=== PATIENT | female | born 1950 | race African-American/Black ===

== ENCOUNTER 2017-08-03 17:31 | Emergency (ER) | payer OTHER ==
[~2017-08-03] VITALS: Ht 162.6 cm; Wt 60.0 kg
[~2017-08-03 17:31] MED LIST: ALBU8I INH; AMLO2.5T PO; ASPI81TA82 PO; LISI-360 PO; LORTA5 PO
[2017-08-03] MEDS ORDERED: ASPI81CH CHEW (17:47)
[2017-08-03] MEDS ORDERED: LISI-515 PO (17:47)
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
--- NOTE | 2017-08-03 18:31 | RADRPT ---
EXAM DATE/TIME: 08/03/2017 18:13 [facility] COMPARISON: No previous studies available for comparison. INDICATIONS : Pain due to fall. MEDICAL HISTORY : None. SURGICAL HISTORY : None. ENCOUNTER: Initial ACUITY: 1 day PAIN SCORE: 5/10 LOCATION: Right upper extremity shoulder. FINDINGS: 4 views of the right shoulder. There is a fracture of the distal clavicle 6 mm from the acromioclavic ular joint. 4-5 mm displacement. Acromioclavicular joint alignment within normal limits. Glenohumeral joint within normal limits. CONCLUSION: Acute distal clavicle fracture. Umesh Edwards MD on August 03, 2017 at 18:28 Board Certified Radiologist. This report was verified electronically.
--- NOTE | 2017-08-03 18:34 | RADRPT ---
EXAM DATE/TIME: 08/03/2017 18:17 [facility] COMPARISON: No previous studies available for comparison. INDICATIONS : Trauma; fall. RADIATION DOSE: 56.35 CTDIvol (mGy) MEDICAL HISTORY : Cerebrovascular disease. Seizures. Aneurysm, intracranial.Hypertension, diabetes SURGICAL HISTORY : Cholecystectomy. Craniotomy.Tubal ligation.Aneurysm clipping ENCOUNTER: Initial ACUITY: 1 day PAIN SCALE: 6/10 LOCATION: cranial TECHNIQUE: Multiple contiguous axial images were obtained of the head. Using automated exposure control and adj ustment of the mA and/or kV according to patient size, radiation dose was kept as low as reasonably a chievable to obtain optimal diagnostic quality images. DICOM format image data is available electro nically for review and comparison. FINDINGS: CEREBRUM: Left-sided aneurysm clip noted. Periventricular white matter hypodensity is seen bilaterally indicati ng chronic small vessel ischemic change. Evidence of prior left temporal craniotomy and encephalomala david of the anterior left temporal lobe of the posterior left frontal lobe. No evidence of acute hemor rhage or mass effect. No midline shift. POSTERIOR FOSSA: The cerebellum and brainstem are intact. The 4th ventricle is midline. The cerebellopontine angle i s unremarkable. EXTRACRANIAL: The visualized portion of the orbits is intact. CONCLUSION: Post surgical changes and chronic ischemic changes. No acute intracranial findings. Umesh Edwards MD on August 03, 2017 at 18:30 Board Certified Radiologist. This report was verified electronically.
[2017-08-03] MEDS ORDERED: NORC5TAB PO (18:44)
--- NOTE | 2017-08-03 19:04 | RADRPT ---
EXAM DATE/TIME: 08/03/2017 18:17 [facility] COMPARISON: No previous studies available for comparison. INDICATIONS : Trauma; fall. RADIATION DOSE: 31.39 CTDIvol (mGy) MEDICAL HISTORY : Cerebrovascular disease. Seizures. Aneurysm, intracranial.Hypertension, diabetes SURGICAL HISTORY : Cholecystectomy. Craniotomy.Tubal ligation.Aneurysm clipping ENCOUNTER: Initial ACUITY: 1 day PAIN SCALE: 6/10 LOCATION: neck TECHNIQUE: Volumetric scanning of the cervical spine was performed. Multiplanar reconstructions in the sagittal, coronal and oblique axial planes were performed. Using automated exposure control and adjustment o f the mA and/or kV according to patient size, radiation dose was kept as low as reasonably achievable to obtain optimal diagnostic quality images. DICOM format image data is available electronically f or review and comparison. FINDINGS: Cranial cervical and cervical vertebral body alignment are intact. Vertebral bodies and posterior elements are intact. There is no evidence of acute fracture. There is no evidence of facet subluxation. Mild degenerative disc disease is seen at C5-6. There is mild marginal spondylosis. Disc spaces are o therwise well-maintained. CONCLUSION: No evidence of acute bony or soft tissue trauma. Mild spondylosis at C5-6. Reno Nye MD on August 03, 2017 at 19:00 Board Certified Radiologist. This report was verified electronically.
== END 2017-08-03 22:23 | disposition home or self-care (01) ==
LOC: NEPE 17:31
DX: S42.034A Nondisplaced fracture of lateral end of right clavicle, initial encounter for closed fracture (principal); S09.90XA Unspecified injury of head, initial encounter; W19.XXXA Unspecified fall, initial encounter; I25.10 Atherosclerotic heart disease of native coronary artery without angina pectoris; I10 Essential (primary) hypertension
CPT/HCPCS: 70450; 72125; 73030

== ENCOUNTER 2018-11-12 12:11 | Observation (INO) ==
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
--- NOTE | 2018-11-12 12:53 | XR ---
EXAM DATE: 11/12/2018 12:48 PM EST AGE/SEX: 68 years / Female INDICATIONS: Short of breath. CLINICAL DATA: This is the patient's initial encounter. Patient reports that signs and symptoms have been present for 1 day and indicates a pain score of 0/10. MEDICAL/SURGICAL HISTORY: . Cerebrovascular disease. Seizures. Aneurysm, intracranial.Hyperten jenny, diabetes . Cholecystectomy. Craniotomy.Tubal ligation.Aneurysm clipping ENCOUNTER: Initial COMPARISON: [facility] [place], CHEST SINGLE AP, 07/15/2015. . FINDINGS: There is persistent elevation of the right hemidiaphragm. The heart is stable. The pulmonary vascular pattern is normal. The lungs are clear. CONCLUSION: 1. No acute cardiopulmonary disease. 2. Persistent elevation of the right hemidiaphragm. Electronically signed by: Tyler Hdz MD Board Certified Radiologist 11/12/2018 12:52 PM EST
[2018-11-12 13:01] LABS: Baso % (Auto) 0.4 % (0.0-2.0); Eos % (Auto) 0.8 % (0.0-4.0); Hematocrit 35.8 % (35.0-46.0); Hemoglobin 11.9 gm/dL (11.6-15.3); Lymph # (Auto) 1.3 th/mm3 (1.0-4.8); Mean Corpuscular HGB Conc 33.3 % (32.0-36.0); Mean Platelet Volume 7.9 fL (7.0-11.0); Mono # (Auto) 0.4 th/mm3 (0.0-0.9); Mono % (Auto) 6.2 % (0.0-8.0); Neut % (Auto) 69.6 % (16.0-70.0); Platelet Count 174 th/mm3 (150-450); Red Blood Count 4.42 mil/mm3 (4.00-5.30); Red Cell Distribution Width 14.3 % (11.6-17.2); White Blood Count 5.8 th/mm3 (4.0-11.0)
[2018-11-12 13:06] LABS: Activated Partial Thrombo Time 25.3 sec (23.4-31.7); INR 1.1 Ratio; Prothrombin Time 11.1 sec (9.8-11.6)
[2018-11-12 13:13] LABS: Albumin 3.6 g/dL (3.4-5.0); Anion Gap 9 meq/L (5-15); Aspartate Aminotransferase 22 U/L (15-37); Blood Urea Nitrogen 24 mg/dL (7-18); Calcium 8.5 mg/dL (8.5-10.1); Carbon Dioxide 26.1 meq/L (21.0-32.0); Chloride 108 meq/L (98-107); Glomerular Filtration Rate 32 mL/min (>89); Glucose,Random 173 mg/dL (74-106); Magnesium 1.9 mg/dL (1.5-2.5); Potassium 4.3 meq/L (3.5-5.1); Sodium 143 meq/L (136-145)
--- NOTE | 2018-11-12 13:14 | CT ---
EXAM DATE: 11/12/2018 1:10 PM EST AGE/SEX: 68 years / Female INDICATIONS: Headache. CLINICAL DATA: This is the patient's initial encounter. Patient reports that signs and symptoms have been present for > 1 year and indicates a pain score of 10/10. MEDICAL/SURGICAL HISTORY: . Cerebrovascular disease. Seizures. Intracranial aneurysm. Hypertension. Diabetes. . Cholecystectomy. Craniotomy. Tubal ligation. Aneurysm clipping RADIATION DOSE: 36.58 CTDI (mGy) COMPARISON: [facility], CT BRAIN W/O CONTRAST, 01/10/2018. C, CT BRAIN W/O CONTRAST, 08/03/2017. . TECHNIQUE: CT of the head without contrast. Using automated exposure control and adjustment of the mA and/or kV according to patient size, radiation dose was kept as low as reasonably achievable to ob tain optimal diagnostic quality images. DICOM format image data is available electronically for revi ew and comparison. FINDINGS: There is no significant change in the appearance of the brain compared to the previous examination. T he patient is status post aneurysm clipping on the left. Encephalomalacia is noted involving the left anterior temporal lobe. Severe periventricular and subcortical white matter small vessel ischemic ch anges are noted bilaterally. There is no acute infarct, acute hemorrhage, midline shift or extra-axia l fluid collections. CONCLUSION: 1. No significant change in the appearance of the brain compared to the previous examination. 2. The patient is status post aneurysm clipping on the left. Encephalomalacia is noted involving the left anterior temporal lobe. 3. Severe periventricular and subcortical white matter small vessel ischemic changes are noted bilat erally. 4. No acute infarct, acute hemorrhage, midline shift or extra-axial fluid collections. . Electronically signed by: Tyler Hdz MD Board Certified Radiologist 11/12/2018 1:13 PM EST
[2018-11-12 13:24] LABS: Alanine Aminotransferase 19 U/L (10-53); Alkaline Phosphatase 73 U/L (45-117); Total Protein 8.3 g/dL (6.4-8.2)
[2018-11-12 13:58] LABS: Bilirubin,Urine Negative (Negative); Clarity,Urine Hazy (Clear); Color,Urine Yellow (Yellw/Straw); Glucose,Urine (UA) Negative (Negative); Hyaline Casts,Urine 66 /lpf (0-3); Leukocyte Esterase,Urine Moderate (Negative); Mucus,Urine Few /lpf (Occasional); Nitrite,Urine Negative (Negative); Specific Gravity,Urine 1.014 (1.002-1.035); Squamous Epithelial Cell,Urine 1 /hpf (0-5)
--- NOTE | 2018-11-12 14:48 | P.HPFP ---
History of Present Illness Primary Care Physician: UNKNOWN <Albaro Esposito - 11/12/18 21:43> UNKNOWN <Angelo Spence - 11/12/18 14:48> History of Present Illness: 68-year-old female presenting to the emergency department with a possible syncopal event versus seizure. The patient, she fell this morning but is unable to describe if this was a syncopal event or seizure type activity. Apparently, she lives with her daughter but recently left her daughter's house unexpectedly and was unable to be located. Her daughter went looking for her and found her on the ground after an unknown period of time. Per the daughter, patient seemed to be confused and unable to explain how she was found why she ended up in a hotel. Patient is complaining of dizziness, however she states that this is a chronic issue and has not been progressing or getting worse. Patient also endorses history of a seizure disorder but states that she has not had a seizure in "months". She is supposed to be on topiramate, however has not been taking this medication for several months. At this time, patient complains of some dizziness but denies other symptoms such as chest pain, palpitations, shortness of breath, fevers or chills, or vision changes. <Albaro Esposito - 11/12/18 21:53> This patient is a 68-year-old female who presents the ED to an unwitnessed fall. Per patient she fell at approximately 1130 and reports having arm pain as well as nausea and one episode of nonbilious nonbloody vomiting prior to. This patient was previously living in [facility] months ago and went to live with her daughter, approximately 2 days ago according to the daughter the patient ran away and was found in a motel. This afternoon/this morning she was found by her daughter on the ground after being on the floor for an unknown period of time. Daughter says that the patient appeared confused after finding her in the motel. Patient reports is never happened before but does admit that she experiences daily dizziness upon awakening. This dizziness has been around for almost a year and last all day. The dizziness is exacerbated by activity and relieved by rest. There are no other exacerbating or alleviating factors. Although this dizziness has been pretty typical for her over the last year this morning it was worsened particularly after eating breakfast. She reports she ate breakfast that consisted of sausage and bread. She she does report a chronic shortness of breath at baseline but but denies any exacerbation today. She also denies any chest pain , any visual symptoms, any arm or jaw pain. She will denies any further GI symptoms. She denies any pain with urination but does report that she urinates more frequently due to drinking a lot of water. PMHx: Brain aneurysm diagnosed in 2010 no treatment, Diabetes, HTN, depression, she also reports history of seizures and stroke that cannot be expanded upon Surgery: Cholecystectomy 30 years ago, Medications: Amlodipine 5mg, 81mg aspirin FMHx: HTN and Depression Allergies: NKA Code: Social Hx: Living with daughter for last 5 months but left and has been living in a hotel for the last 2 days. Prior to living with daughter she lived in [facility]. . Patient has 3 children. Patient retired from being a cheesh-na at a bank. Previously smoked a pack a month and quit 13 years ago. No alcohol. Code: DNR Seen by unknown neurologist. PCP: Dr. Otto Ceron <Angelo Spence - 11/12/18 16:41> - Diagnosis (1) Acute encephalopathy (2) UTI (urinary tract infection) (3) Diabetes (4) HTN (hypertension) (5) Depression (6) Nutrition, metabolism, and development symptoms <Albaro Esposito - 11/12/18 21:43> (1) Acute encephalopathy (2) UTI (urinary tract infection) (3) Diabetes (4) HTN (hypertension) (5) Depression (6) Nutrition, metabolism, and development symptoms <Angelo Spence - 11/12/18 23:35> Review of Systems Constitutional: Endorses dizziness, denies chills, Denies fever(s), Denies headache(s) Eyes: Denies change in vision, Denies double vision, Denies blurry vision Cardiovascular: Denies chest pain, Denies fast heart rate, Denies rapid, pounding, or irregular heartbeat Respiratory: Endorses chronic shortness of breath without exacerbation Gastrointestinal: Endorses one episode of nonbilious nonbloody vomiting this morning. Denies abdominal pain, Denies constipation, Denies loose stools, Genitourinary: Endorses urinary frequency, denies difficulty urinating, Denies painful urination, Denies blood in urine <Angelo Spence 11/12/18 16:41> PMFSH - History History Provided By: Patient, Medical Record, Health Sciences Manager / EMT <Angelo Spence 11/12/18 14:48> - Medical History Medical History: Medical History (Last Reviewed 11/12/18 @ 12:33 by DANIEL Alexis) Brain aneurysm CAD (coronary artery disease) Diabetes Headache Hypertension Seizure <Albaro Esposito 11/12/18 21:53> Medical History (Last Reviewed 11/12/18 @ 12:33 by DANIEL Alexis) Brain aneurysm CAD (coronary artery disease) Diabetes Headache Hypertension Seizure <Angelo Spence 11/12/18 14:48> - Surgical History Surgical History: Surgical History (Last Reviewed 11/12/18 @ 12:33 by DANIEL Alexis) Hx of cholecystectomy <Albaro Esposito 11/12/18 21:53> Surgical History (Last Reviewed 11/12/18 @ 12:33 by DANIEL Alexis) Hx of cholecystectomy <Angelo Spence 11/12/18 14:48> - Tobacco History Smoking Status: Former smoker <Angelo Spence 11/12/18 14:48> - Alcohol History How Often Do You Have a Drink Containing Alcohol: Never <Angelo Spence 14:48> - Substance Use History Substance History: No History of Abuse <Angelo Spence 11/12/18 14:48> - Travel History Recent Travel in the [facility] Within the Last 8 Weeks: No <Angelo Spence 11/12 14:48> Recent Travel Out of the Country Within the Last 8 Weeks: No <Angelo Spence 11/12/18 14:48> - Immunization History Tetanus Immunization: <5 Years <Angelo Spence 11/12/18 14:48> Medications and Allergies Allergies Allergy/AdvReac Type Severity Reaction Status Date / Time No Known Allergies Allergy Verified 11/12/18 12:34 <Angelo Spence 11/12/18 14:48> Home Medications Medication Instructions Recorded Confirmed Type Nitrostat 0.4 mg SUBLINGUAL PRN PRN 11/12/18 11/12/18 History amlodipine 5 mg PO DAILY 11/12/18 11/12/18 History amlodipine 10 mg PO DAILY 11/12/18 11/12/18 History aspirin 81 mg PO DAILY 11/12/18 11/12/18 History aspirin [Aspir-81] 81 mg PO DAILY 11/12/18 11/12/18 History hydrocodone-acetaminophen [Erskine] 1 tab PO PRN PRN 11/12/18 11/12/18 History lisinopril 20 mg PO DAILY 11/12/18 11/12/18 History metoprolol tartrate 25 mg PO DAILY 11/12/18 11/12/18 History omeprazole 20 mg PO TIDAC 11/12/18 11/12/18 History sertraline [Zoloft] 25 mg PO HS 11/12/18 11/12/18 History topiramate 25 mg PO BID 11/12/18 11/12/18 History <Angelo Spence O - 11/12/18 14:48> Active Medications: Active Medications Acetaminophen (Tylenol) 650 mg PO Q4H PRN PRN Reason: Temp > 100.4 Al Hydroxide/Mg Hydroxide (Milk Of Magnesia Liq) 30 ml PO Q12H PRN PRN Reason: Mild Constipation Amlodipine Besylate (Norvasc) 5 mg PO DAILY ANA LUISA Aspirin (Aspirin Chew) 81 mg PO DAILY ANA LUISA Bisacodyl (Dulcolax Supp) 10 mg RECTAL DAILY PRN PRN Reason: SEVERE CONSITIPATION Dextrose (D50w Vial) 50 ml IV.PUSH UNSCH PRN PRN Reason: PER HYPOGLYCEMIA PROTOCOL Glucagon (Glucagon Inj) 1 mg OTHER PRN PRN PRN Reason: for Hypoglycemia Protocol Sodium Chloride (Ns Inj) 1,000 mls @ 100 mls/hr IV.CONT .Q10H ANA LUISA Last Admin: 11/12/18 17:27 Dose: 100 mls/hr Insulin Aspart (Novolog Insulin Correctional Sugar Inj) 0 unit SQ ACHS AND 3AM ANA LUISA; Protocol Last Admin: 11/12/18 21:24 Dose: Not Given Lactulose (Lactulose Liq) 30 ml PO DAILY PRN PRN Reason: SEVERE CONSITIPATION Nitrofurantoin Macrocrystals ([facility]robid) [facility] Ondansetron HCl (Zofran Inj) 4 mg IV.PUSH Q6H PRN PRN Reason: NAUSEA OR VOMITING Sennosides (Senokot) 17.2 mg PO Q12H PRN PRN Reason: Moderate Constipation Sodium Chloride (Ns Flush) 2 ml IV.FLUSH BID ON LICENSE OF [facility] Last Admin: 11/12/18 21:25 Dose: 2 ml Sodium Chloride (Ns Flush) 2 ml IV.FLUSH PRN PRN PRN Reason: FLUSH AFTER USING IV ACCESS <Albaro Esposito - 11/12/18 21:53> Exam Vital signs: Vital Signs 11/12/18 12:20 11/12/18 12:30 11/12/18 12:32 Temperature 98.1 F Pulse Rate 108 H 97 H 98 H Respiratory Rate 16 18 Blood Pressure 106/68 107/66 Pulse Oximetry 91 L 94 L 95 11/12/18 14:34 11/12/18 16:00 11/12/18 17:28 Temperature 98.6 F Pulse Rate 83 93 H 101 H Respiratory Rate 16 16 Blood Pressure 108/67 116/75 Pulse Oximetry 99 94 L 11/12/18 19:51 Temperature 98.2 F Pulse Rate 82 Respiratory Rate 16 Blood Pressure 140/86 Pulse Oximetry 100 Intake & Output 11/12/18 11/12/18 11/13/18 06:59 18:59 06:59 Weight 61.689 kg Other: # Voids 1 Weight On Admission 61.689 kg <Alabro Esposito - 11/12/18 21:43> Vital Signs 11/12/18 12:20 11/12/18 12:30 11/12/18 12:32 Temperature 98.1 F Pulse Rate 108 H 97 H 98 H Respiratory Rate 16 18 Blood Pressure 106/68 107/66 Pulse Oximetry 91 L 94 L 95 11/12/18 14:34 Temperature Pulse Rate 83 Respiratory Rate 16 Blood Pressure 108/67 Pulse Oximetry 99 Intake & Output 11/11/18 11/12/18 11/12/18 18:59 06:59 18:59 Weight 61.235 kg <Angelo Spence - 11/12/18 14:48> Narrative: General: Elderly female lying in bed, no obvious distress Skin: Warm and dry with no obvious lesions, breakdown, or rash. HEENT: Mucous membranes are moist, no obvious signs of injury CV: Regular rate and rhythm without murmur Respiratory: Clear to auscultation bilaterally without wheezes or rhonchi Neuro: Patient does have a resting tremor, neurologically intact into the upper and lower extremities with sensation and motor movement. Cranial nerves II through XII are intact. Negative pronator drift. <Albaro Esposito - 11/12/18 21:53> GENERAL: Thin appearing elderly female. No acute distress. SKIN: Warm and dry. No rash. EYES: No scleral icterus. No injection or drainage. PERRLA. EOMI. HENT: Normocephalic. Atraumatic. MMM. OP Benign. No signs of injury. NECK: Supple, trachea midline. No JVD or lymphadenopathy. CARDIOVASCULAR: Regular rate and rhythm without obvious murmurs, gallops, or rubs. RESPIRATORY: Breath sounds equal bilaterally. No accessory muscle use. CTAB. GASTROINTESTINAL: Abdomen soft, non-tender, nondistended. BS WNL. MUSCULOSKELETAL: No cyanosis or edema. Strength grossly WNL. BACK: Nontender without obvious deformity. No CVA tenderness. NEURO/PSYCH: Afocal. Awake, alert, and oriented x3 but easily distracted. <Angelo Spence - 11/12/18 16:41> Results - Labs Result diagrams: 11/12/18 12:30 11/12/18 12:30 <Angelo Spence - 11/12/18 14:48> Abnormal lab results 11/12/18 11/12/18 11/12/18 Range/Units 12:30 12:44 13:30 Chloride 108 H (98-107) meq/L BUN 24 H (7-18) mg/dL Creatinine 1.89 H (0.50-1.00) mg/dL Estimated GFR 32 L (>89) mL/min POC Glucose 187 H (68-110) mg/dl Random Glucose 173 H (74-106) mg/dL Total Bilirubin 1.2 H (0.2-1.0) mg/dL Troponin I Less than 0.02 L (0.02-0.05) ng/mL Total Protein 8.3 H (6.4-8.2) g/dL Folate (3.1-17.5) ng/mL Urine Clarity Hazy H (Clear) Ur Leukocyte Esterase Moderate H (Negative) Urine WBC (0-5) /hpf Urine Mucus Few H (Occasional) /lpf 11/12/18 11/12/18 11/12/18 Range/Units 17:26 18:12 21:23 Chloride (98-107) meq/L BUN (7-18) mg/dL Creatinine (0.50-1.00) mg/dL Estimated GFR (>89) mL/min POC Glucose 118 H (68-110) mg/dl Random Glucose (74-106) mg/dL Total Bilirubin (0.2-1.0) mg/dL Troponin I Less than 0.02 L (0.02-0.05) ng/mL Total Protein (6.4-8.2) g/dL Folate 18.1 H (3.1-17.5) ng/mL Urine Clarity (Clear) Ur Leukocyte Esterase Moderate H (Negative) Urine WBC 14 H (0-5) /hpf Urine Mucus Few H (Occasional) /lpf Short CBC 11/12/18 Range/Units 12:30 WBC 5.8 (4.0-11.0) th/mm3 Hgb 11.9 (11.6-15.3) gm/dL Hct 35.8 (35.0-46.0) % Plt Count 174 (150-450) th/mm3 BMP 11/12/18 12:30 Sodium 143 Potassium 4.3 Chloride 108 H Carbon Dioxide 26.1 BUN 24 H Creatinine 1.89 H Calcium 8.5 Cardiac Enzymes 11/12/18 11/12/18 Range/Units 12:30 17:26 Total Creatine Kinase 151 (26-192) U/L Troponin I Less than 0.02 L Less than 0.02 L (0.02-0.05) ng/mL Liver Function 11/12/18 Range/Units 12:30 Total Bilirubin 1.2 H (0.2-1.0) mg/dL AST 22 (15-37) U/L ALT 19 (10-53) U/L Alkaline Phosphatase 73 (45-117) U/L Albumin 3.6 (3.4-5.0) g/dL Urine 11/12/18 11/12/18 Range/Units 13:30 18:12 Urine Color Yellow Yellow (Yellw/Straw) Urine Clarity Hazy H Clear (Clear) Urine pH 5.0 5.0 (5.0-8.5) Ur Specific Neville 1.014 1.013 (1.002-1.035) Urine Protein Negative Negative (Neg-Trace) mg/dL Urine Glucose (UA) Negative Negative (Negative) mg/dL <Albaro Esposito - 11/12/18 21:43> Abnormal lab results 11/12/18 11/12/18 11/12/18 Range/Units 12:30 12:44 13:30 Chloride 108 H (98-107) meq/L BUN 24 H (7-18) mg/dL Creatinine 1.89 H (0.50-1.00) mg/dL Estimated GFR 32 L (>89) mL/min POC Glucose 187 H (68-110) mg/dl Random Glucose 173 H (74-106) mg/dL Total Bilirubin 1.2 H (0.2-1.0) mg/dL Troponin I Less than 0.02 L (0.02-0.05) ng/mL Total Protein 8.3 H (6.4-8.2) g/dL Urine Clarity Hazy H (Clear) Ur Leukocyte Esterase Moderate H (Negative) Urine Mucus Few H (Occasional) /lpf Short CBC 11/12/18 Range/Units 12:30 WBC 5.8 (4.0-11.0) th/mm3 Hgb 11.9 (11.6-15.3) gm/dL Hct 35.8 (35.0-46.0) % Plt Count 174 (150-450) th/mm3 BMP 11/12/18 12:30 Sodium 143 Potassium 4.3 Chloride 108 H Carbon Dioxide 26.1 BUN 24 H Creatinine 1.89 H Calcium 8.5 Cardiac Enzymes 11/12/18 Range/Units 12:30 Troponin I Less than 0.02 L (0.02-0.05) ng/mL Liver Function 11/12/18 Range/Units 12:30 Total Bilirubin 1.2 H (0.2-1.0) mg/dL AST 22 (15-37) U/L ALT 19 (10-53) U/L Alkaline Phosphatase 73 (45-117) U/L Albumin 3.6 (3.4-5.0) g/dL Urine 11/12/18 Range/Units 13:30 Urine Color Yellow (Yellw/Straw) Urine Clarity Hazy H (Clear) Urine pH 5.0 (5.0-8.5) Ur Specific Neville 1.014 (1.002-1.035) Urine Protein Negative (Neg-Trace) mg/dL Urine Glucose (UA) Negative (Negative) mg/dL <Angelo Spence - 11/12/18 14:48> - Imaging Impressions Head CTA 11/12/18 00:00 CONCLUSION: 1. Prior aneurysm clipping. 2. Variant anatomy. 3. No acute abnormality. . Neck CTA 11/12/18 00:00 CONCLUSION: 1. No aneurysms. 2. Unremarkable study. Chest X-Ray 11/12/18 12:23 CONCLUSION: 1. No acute cardiopulmonary disease. 2. Persistent elevation of the right hemidiaphragm. Head CT 11/12/18 12:23 CONCLUSION: 1. No significant change in the appearance of the brain compared to the previous examination. 2. The patient is status post aneurysm clipping on the left. Encephalomalacia is noted involving the left anterior temporal lobe. 3. Severe periventricular and subcortical white matter small vessel ischemic changes are noted bilaterally. 4. No acute infarct, acute hemorrhage, midline shift or extra-axial fluid collections. . <Albaro Esposito - 11/12/18 21:43> Impressions Chest X-Ray 11/12/18 12:23 CONCLUSION: 1. No acute cardiopulmonary disease. 2. Persistent elevation of the right hemidiaphragm. Head CT 11/12/18 12:23 CONCLUSION: 1. No significant change in the appearance of the brain compared to the previous examination. 2. The patient is status post aneurysm clipping on the left. Encephalomalacia is noted involving the left anterior temporal lobe. 3. Severe periventricular and subcortical white matter small vessel ischemic changes are noted bilaterally. 4. No acute infarct, acute hemorrhage, midline shift or extra-axial fluid collections. . <Angelo Spence - 11/12/18 14:48> Caprini VTE Risk Assessment Caprini VTE Risk Assessment: Moderate/High Risk (score >= 2) <Angelo Spence - 11/12/18 23:35> Caprini Risk Assessment Model: Point Value = 1 Point Value = 2 Point Value = 3 Point Value = 5 Age 41-60 Minor surgery BMI > 25 kg/m2 Swollen legs Varicose veins or History of unexplained or recurrent spontaneous Oral contraceptives or hormone replacement Sepsis (< 1 month) Serious lung disease, including pneumonia (< 1 month) Abnormal pulmonary function Acute myocardial infarction Congestive heart failure (< 1 month) History of inflammatory bowel disease Medical patient at bed rest Age 61-74 Arthroscopic surgery Major open surgery (> 45 min) Laparoscopic surgery (> 45 min) Malignancy Confined to bed (> 72 hours) Immobilizing plaster cast Central venous access Age >= 75 History of VTE Family history of VTE Factor V Leiden Prothrombin [id number] Lupus anticoagulant Anticardiolipin antibodies Elevated serum homocysteine Heparin-induced thrombocytopenia Other congenital or acquired thrombophilia Stroke (< 1 month) Elective arthroplasty Hip, pelvis, or leg fracture Acute spinal cord injury (< 1 month) <Albaro Esposito - 11/12/18 21:43> Point Value = 1 Point Value = 2 Point Value = 3 Point Value = 5 Age 41-60 Minor surgery BMI > 25 kg/m2 Swollen legs Varicose veins or History of unexplained or recurrent spontaneous Oral contraceptives or hormone replacement Sepsis (< 1 month) Serious lung disease, including pneumonia (< 1 month) Abnormal pulmonary function Acute myocardial infarction Congestive heart failure (< 1 month) History of inflammatory bowel disease Medical patient at bed rest Age 61-74 Arthroscopic surgery Major open surgery (> 45 min) Laparoscopic surgery (> 45 min) Malignancy Confined to bed (> 72 hours) Immobilizing plaster cast Central venous access Age >= 75 History of VTE Family history of VTE Factor V Leiden Prothrombin [id number] Lupus anticoagulant Anticardiolipin antibodies Elevated serum homocysteine Heparin-induced thrombocytopenia Other congenital or acquired thrombophilia Stroke (< 1 month) Elective arthroplasty Hip, pelvis, or leg fracture Acute spinal cord injury (< 1 month) <Angelo Spence - 11/12/18 14:48> Prophylaxis Regimen: Total Risk Factor Score Risk Level Prophylaxis Regimen 0-1 Low Early ambulation 2 Moderate Order ONE of the following: *Sequential Compression Device (SCD) *Heparin 5000 units SQ BID 3-4 Higher Order ONE of the following medications: *Heparin 5000 units SQ TID *Enoxaparin/Lovenox 40 mg SQ daily (WT < 150 kg, CrCl > 30 mL/min) *Enoxaparin/Lovenox 30 mg SQ daily (WT < 150 kg, CrCl > 10-29 mL/min) *Enoxaparin/Lovenox 30 mg SQ BID (WT < 150 kg, CrCl > 30 mL/min) AND/OR *Sequential Compression Device (SCD) 5 or more Highest Order ONE of the following medications: *Heparin 5000 units SQ TID (Preferred with Epidurals) *Enoxaparin/Lovenox 40 mg SQ daily (WT < 150 kg, CrCl > 30 mL/min) *Enoxaparin/Lovenox 30 mg SQ daily (WT < 150 kg, CrCl > 10-29 mL/min) *Enoxaparin/Lovenox 30 mg SQ BID (WT < 150 kg, CrCl > 30 mL/min) AND *Sequential Compression Device (SCD) <Albaro Esposito - 11/12/18 21:43> Total Risk Factor Score Risk Level Prophylaxis Regimen 0-1 Low Early ambulation 2 Moderate Order ONE of the following: *Sequential Compression Device (SCD) *Heparin 5000 units SQ BID 3-4 Higher Order ONE of the following medications: *Heparin 5000 units SQ TID *Enoxaparin/Lovenox 40 mg SQ daily (WT < 150 kg, CrCl > 30 mL/min) *Enoxaparin/Lovenox 30 mg SQ daily (WT < 150 kg, CrCl > 10-29 mL/min) *Enoxaparin/Lovenox 30 mg SQ BID (WT < 150 kg, CrCl > 30 mL/min) AND/OR *Sequential Compression Device (SCD) 5 or more Highest Order ONE of the following medications: *Heparin 5000 units SQ TID (Preferred with Epidurals) *Enoxaparin/Lovenox 40 mg SQ daily (WT < 150 kg, CrCl > 30 mL/min) *Enoxaparin/Lovenox 30 mg SQ daily (WT < 150 kg, CrCl > 10-29 mL/min) *Enoxaparin/Lovenox 30 mg SQ BID (WT < 150 kg, CrCl > 30 mL/min) AND *Sequential Compression Device (SCD) <Angelo Spence - 11/12/18 14:48> Assessment and Plan - Assessment (1) Acute encephalopathy Code(s): G93.40 - Encephalopathy, unspecified Status: Acute (2) UTI (urinary tract infection) Code(s): N39.0 - Urinary tract infection, site not specified Status: Acute (3) Diabetes Code(s): E11.9 - Type 2 diabetes mellitus without complications Status: Acute (4) HTN (hypertension) Code(s): I10 - Essential (primary) hypertension Status: Acute (5) Depression Code(s): F32.9 - Major depressive disorder, single episode, unspecified Status : Acute (6) Nutrition, metabolism, and development symptoms Code(s): R63.8 - Other symptoms and signs concerning food and fluid intake Status: Acute <Albaro Esposito - 11/12/18 21:43> (1) Acute encephalopathy Code(s): G93.40 - Encephalopathy, unspecified Status: Acute Plan: This patient is admitted after an unwitnessed fall, found by daughter after unknown amount of time. Patient left home 2 days ago found in hotel. History of brain anuerysm. UA shows leukocyte esterase. - Follow serial troponin - Follow serial EKGs - F/u head MRA - F/u brain MRI - Monitor on telemetry - Orthostatic BPs - Follow-up with urinary culture - Follow-up B12 - Follow-up with methylmalonic acid level - Follow-up drug screen - Follow-up with folate level - Follow-up with INR (2) UTI (urinary tract infection) Code(s): N39.0 - Urinary tract infection, site not specified Status: Acute Plan: Patient with moderate leukocyte esterase on UA on admission after unwitnessed fall. Macrobid 100 BID for 5 day course. (3) Diabetes Code(s): E11.9 - Type 2 diabetes mellitus without complications Status: Acute Plan: Patient has history of diabetes but not currently medicated. Random glucose on admission was 197. -Begin low-dose sliding scale (4) HTN (hypertension) Code(s): I10 - Essential (primary) hypertension Status: Acute Plan: Patient reports having history of hypertension but is currently normotensive -Continue to monitor vitals -Continue home amlodipine 5 mg daily (5) Depression Code(s): F32.9 - Major depressive disorder, single episode, unspecified Status : Acute Plan: Patient reports history of depression. Patient currently not suicidal or homicidal. -Continue to monitor patient consider psych referral if patient decompensates (6) Nutrition, metabolism, and development symptoms Code(s): R63.8 - Other symptoms and signs concerning food and fluid intake Status: Acute Plan: Fluids: Not indicated at this time Electrolytes: Replete as needed Nutrition: Cardiac diet DVT prophylaxis: Enoxaparin 40 mg subcu daily <Angelo Spence - 11/12/18 23:35> - Attending Attestation Pt. examined independently from resident team this afternoon I have read the above note and agree with the assessment/plan as discussed with me I was involved in all medical decision making for this patient Syncope vs. Seizure: - Obtain CTA of head/neck - ACS rule out with troponins/ekg - B12/Folate/MMA ordered - UA with urine culture ordered - Orthostatic vitals ordered Physical therapy ordered for laura Esposito MD <Albaro Esposito - 11/12/18 21:53>
[2018-11-12] MEDS ORDERED: Acetaminophen 325 MG Tablet PO PRN (15:05)
[2018-11-12] MEDS ORDERED: Bisacodyl 10 MG Supp RECTAL PRN (15:05)
[2018-11-12] MEDS ORDERED: Enoxaparin Inj 40 MG/0.4 ML Syringe SQ SCH (15:15)
[2018-11-12] MEDS: Sod Chloride 0.9% Inj 1,000 ML IV.CONT SCH (17:27)
[2018-11-12 18:24] LABS: Creatine Kinase 151 U/L (26-192); Folate 18.1 ng/mL (3.1-17.5); Vitamin B12 871 pg/mL (193-986)
[2018-11-12] MEDS ORDERED: Dextrose 50% in Water 50 ML Vial IV.PUSH PRN (20:26)
--- NOTE | 2018-11-12 21:13 | CT ---
EXAM DATE: 11/12/2018 9:06 PM EST AGE/SEX: 68 years / Female INDICATIONS: Aneurysm. CLINICAL DATA: This is the patient's initial encounter. Patient reports that signs and symptoms have been present for 1 day and indicates a pain score of 0/10. MEDICAL/SURGICAL HISTORY: Aneurysm, intracranial. Cardiovascular disease. Diabetes. Hypertension . Seizures. Cholecystectomy. RADIATION DOSE: 9.52 CTDI (mGy) ; Combined studies COMPARISON: No prior exams available for comparison. TECHNIQUE: Volumetric scanning was performed using a multi-row detector CT scanner during bolus infu jenny of 50 ml Visipaque 320 (iodixanol) nonionic water-soluble contrast as a cumulative dose for mul tiple exams. The data was post processed with a variety of visualization algorithms including full volume maximum intensity projection, multi-planar sliding thin slab reformation, curved planar reform ation, and surface rendering techniques. Using automated exposure control and adjustment of the mA a nd/or kV according to patient size, radiation dose was kept as low as reasonably achievable to obtain optimal diagnostic quality images. DICOM format image data is available electronically for review a nd comparison. FINDINGS: There is excellent visualization of the major intracranial arteries out to the second-order branch ve ssels. The patient has variant anatomy. There is persistent circulation bilaterally with a resu lting small caliber basilar artery. An aneurysm clip is seen involving the middle cranial fossa on th e left. This generates beam hardening artifact. There is no evidence for aneurysm, vessel truncation or stenosis, and no evidence for vascular malformation. CONCLUSION: 1. Prior aneurysm clipping. 2. Variant anatomy. 3. No acute abnormality. . Electronically signed by: Aydin Medina MD Board Certified Radiologist 11/12/2018 9:12 PM EST
--- NOTE | 2018-11-12 21:15 | CT ---
EXAM DATE: 11/12/2018 9:10 PM EST AGE/SEX: 68 years / Female INDICATIONS: Aneurysm. CLINICAL DATA: This is the patient's initial encounter. Patient reports that signs and symptoms have been present for 1 day and indicates a pain score of 0/10. MEDICAL/SURGICAL HISTORY: Aneurysm, intracranial. Cardiovascular disease. Hypertension. Diabetes . Seizures. Cholecystectomy. RADIATION DOSE: 9.52 CTDI (mGy) ; Combined studies COMPARISON: No prior exams available for comparison. TECHNIQUE: Volumetric scanning was performed using a multirow detector CT scanner during bolus infus ion of 50 ml Visipaque 320 (iodixanol) nonionic water-soluble contrast as a cumulative dose for mult iple exams. The data was postprocessed with a variety of visualization algorithms including full-vo lume maximum intensity projection, multiplanar sliding thin-slab reformation, curved-planar reformati on, and surface-rendering techniques. Using automated exposure control and adjustment of the mA and/ or kV according to patient size, radiation dose was kept as low as reasonably achievable to obtain op timal diagnostic quality images. DICOM format image data is available electronically for review and comparison. FINDINGS: Aortic Arch: There is a two-vessel origin of the great vessels from the aorta. The left common carot id and brachiocephalic arteries share a common origin. No evidence of ostial narrowing Right Carotid: The common carotid artery is intact. The carotid bulb has a normal configuration wit hout ulceration or narrowing. The internal carotid artery lumen is smooth without stenosis. The ext ernal carotid artery is intact. Left Carotid: The common carotid artery is intact. The carotid bulb has a normal configuration with out ulceration or narrowing. The internal carotid artery lumen is smooth without stenosis. The exte rnal carotid artery is intact. Vertebrals: The vertebral arteries have a symmetric diameter. No stenotic lesions are seen. Percent stenosis is calculated using the diameter of the stenotic region over the diameter of the nor mal distal internal carotid artery. CONCLUSION: 1. No aneurysms. 2. Unremarkable study. Electronically signed by: Aydin Medina MD Board Certified Radiologist 11/12/2018 9:14 PM EST
[2018-11-12 21:16] LABS: Amphetamine Screen,Urine Neg (Neg); Barbiturate Screen,Urine Neg (Neg); Cannabinoid Screen,Urine Neg (Neg); Cocaine Screen,Urine Neg (Neg)
[2018-11-12 21:19] LABS: Opiate Screen,Urine Neg (Neg)
[2018-11-12] MEDS: Insulin NovoLOG Aspart Correctional Sugar Inj SQ SCH (21:24)
[2018-11-12 21:28] LABS: Bilirubin,Urine Negative (Negative); Clarity,Urine Clear (Clear); Color,Urine Yellow (Yellw/Straw); Glucose,Urine (UA) Negative (Negative); Hyaline Casts,Urine 19 /lpf (0-3); Leukocyte Esterase,Urine Moderate (Negative); Mucus,Urine Few /lpf (Occasional); Nitrite,Urine Negative (Negative); Specific Gravity,Urine 1.013 (1.002-1.035); Squamous Epithelial Cell,Urine <1 /hpf (0-5)
[2018-11-13] MEDS: Sod Chloride 0.9% Inj 1,000 ML IV.CONT SCH ×2 (01:18→12:27)
[2018-11-13 01:44] LABS: Creatine Kinase 170 U/L (26-192)
[2018-11-13] MEDS: Insulin NovoLOG Aspart Correctional Sugar Inj SQ SCH ×3 (02:12→12:27)
[2018-11-13 07:36] VITALS: TEMP 98.2
[2018-11-13] MEDS ORDERED: Nitrofurantoin Monohydrate-Macrocrystal 100 MG Capsule PO SCH (09:00)
[2018-11-13] MEDS ORDERED: amLODIPine 5 MG Tablet PO SCH (09:00)
[2018-11-13] MEDS ORDERED: Sertraline 50 MG Tablet PO SCH (09:15)
--- NOTE | 2018-11-13 09:45 | P.PNFP ---
Subjective Interval history: The patient reports that her night was okay. She reports that she could not sleep well. She reports that she feels okay. She denies any chest pain, jaw pain, nausea, vomiting, she reports that she is tolerating p.o. She reports that her right arm always hurts. She reports chronic dizziness for the past year, worse with movement. She denies any other pain. Discussed plan of care to empirically treat for possible UTI, resume home seizure and depression medication, get orthostatic vital signs. Per nurse report, patient has no h/o DM, and has had some low BG. <Kayla SolisPolo Quintero - 11/13/18 12:02> Results - Labs Result diagrams: 11/12/18 12:30 11/13/18 08:20 <Albaro Esposito - 11/13/18 15:36> Abnormal lab results 11/12/18 11/12/18 11/12/18 Range/Units 17:26 18:12 21:23 Chloride (98-107) meq/L Anion Gap (5-15) meq/L BUN (7-18) mg/dL Creatinine (0.50-1.00) mg/dL Estimated GFR (>89) mL/min POC Glucose 118 H (68-110) mg/dl Random Glucose (74-106) mg/dL Total Bilirubin (0.2-1.0) mg/dL Troponin I Less than 0.02 L (0.02-0.05) ng/mL Folate 18.1 H (3.1-17.5) ng/mL Ur Leukocyte Esterase Moderate H (Negative) Urine WBC 14 H (0-5) /hpf Urine Mucus Few H (Occasional) /lpf 11/13/18 11/13/18 Range/Units 01:11 08:20 Chloride 112 H (98-107) meq/L Anion Gap 4 L (5-15) meq/L BUN 19 H (7-18) mg/dL Creatinine 1.08 H (0.50-1.00) mg/dL Estimated GFR 61 L (>89) mL/min POC Glucose (68-110) mg/dl Random Glucose 113 H (74-106) mg/dL Total Bilirubin 1.1 H (0.2-1.0) mg/dL Troponin I Less than 0.02 L (0.02-0.05) ng/mL Folate (3.1-17.5) ng/mL Ur Leukocyte Esterase (Negative) Urine WBC (0-5) /hpf Urine Mucus (Occasional) /lpf BMP 11/13/18 08:20 Sodium 144 Potassium 4.5 Chloride 112 H Carbon Dioxide 27.9 BUN 19 H Creatinine 1.08 H Calcium 8.7 Cardiac Enzymes 11/12/18 11/13/18 Range/Units 17:26 01:11 Total Creatine Kinase 151 170 (26-192) U/L Troponin I Less than 0.02 L Less than 0.02 L (0.02-0.05) ng/mL Liver Function 11/13/18 Range/Units 08:20 Total Bilirubin 1.1 H (0.2-1.0) mg/dL AST 21 (15-37) U/L ALT 17 (10-53) U/L Alkaline Phosphatase 72 (45-117) U/L Albumin 3.4 (3.4-5.0) g/dL Urine 11/12/18 Range/Units 18:12 Urine Color Yellow (Yellw/Straw) Urine Clarity Clear (Clear) Urine pH 5.0 (5.0-8.5) Ur Specific [place] 1.013 (1.002-1.035) Urine Protein Negative (Neg-Trace) mg/dL Urine Glucose (UA) Negative (Negative) mg/dL <Albaro Esposito - 11/13/18 15:36> Abnormal lab results 11/12/18 11/12/18 11/12/18 Range/Units 12:30 12:44 13:30 Chloride 108 H (98-107) meq/L BUN 24 H (7-18) mg/dL Creatinine 1.89 H (0.50-1.00) mg/dL Estimated GFR 32 L (>89) mL/min POC Glucose 187 H (68-110) mg/dl Random Glucose 173 H (74-106) mg/dL Total Bilirubin 1.2 H (0.2-1.0) mg/dL Troponin I Less than 0.02 L (0.02-0.05) ng/mL Total Protein 8.3 H (6.4-8.2) g/dL Folate (3.1-17.5) ng/mL Urine Clarity Hazy H (Clear) Ur Leukocyte Esterase Moderate H (Negative) Urine WBC (0-5) /hpf Urine Mucus Few H (Occasional) /lpf 11/12/18 11/12/18 11/12/18 Range/Units 17:26 18:12 21:23 Chloride (98-107) meq/L BUN (7-18) mg/dL Creatinine (0.50-1.00) mg/dL Estimated GFR (>89) mL/min POC Glucose 118 H (68-110) mg/dl Random Glucose (74-106) mg/dL Total Bilirubin (0.2-1.0) mg/dL Troponin I Less than 0.02 L (0.02-0.05) ng/mL Total Protein (6.4-8.2) g/dL Folate 18.1 H (3.1-17.5) ng/mL Urine Clarity (Clear) Ur Leukocyte Esterase Moderate H (Negative) Urine WBC 14 H (0-5) /hpf Urine Mucus Few H (Occasional) /lpf 11/13/18 Range/Units 01:11 Chloride (98-107) meq/L BUN (7-18) mg/dL Creatinine (0.50-1.00) mg/dL Estimated GFR (>89) mL/min POC Glucose (68-110) mg/dl Random Glucose (74-106) mg/dL Total Bilirubin (0.2-1.0) mg/dL Troponin I Less than 0.02 L (0.02-0.05) ng/mL Total Protein (6.4-8.2) g/dL Folate (3.1-17.5) ng/mL Urine Clarity (Clear) Ur Leukocyte Esterase (Negative) Urine WBC (0-5) /hpf Urine Mucus (Occasional) /lpf Short CBC 11/12/18 Range/Units 12:30 WBC 5.8 (4.0-11.0) th/mm3 Hgb 11.9 (11.6-15.3) gm/dL Hct 35.8 (35.0-46.0) % Plt Count 174 (150-450) th/mm3 BMP 11/12/18 12:30 Sodium 143 Potassium 4.3 Chloride 108 H Carbon Dioxide 26.1 BUN 24 H Creatinine 1.89 H Calcium 8.5 Cardiac Enzymes 11/12/18 11/12/18 11/13/18 Range/Units 12:30 17:26 01:11 Total Creatine Kinase 151 170 (26-192) U/L Troponin I Less than 0.02 L Less than 0.02 L Less than 0.02 L (0.02-0.05) ng/mL Liver Function 11/12/18 Range/Units 12:30 Total Bilirubin 1.2 H (0.2-1.0) mg/dL AST 22 (15-37) U/L ALT 19 (10-53) U/L Alkaline Phosphatase 73 (45-117) U/L Albumin 3.6 (3.4-5.0) g/dL Urine 11/12/18 11/12/18 Range/Units 13:30 18:12 Urine Color Yellow Yellow (Yellw/Straw) Urine Clarity Hazy H Clear (Clear) Urine pH 5.0 5.0 (5.0-8.5) Ur Specific [place] 1.014 1.013 (1.002-1.035) Urine Protein Negative Negative (Neg-Trace) mg/dL Urine Glucose (UA) Negative Negative (Negative) mg/dL <Polo Morris - 11/13/18 09:45> - Imaging Impressions Head CTA 11/12/18 00:00 CONCLUSION: 1. Prior aneurysm clipping. 2. Variant anatomy. 3. No acute abnormality. . Neck CTA 11/12/18 00:00 CONCLUSION: 1. No aneurysms. 2. Unremarkable study. <Albaro Esposito - 11/13/18 15:36> Impressions Head CTA 11/12/18 00:00 CONCLUSION: 1. Prior aneurysm clipping. 2. Variant anatomy. 3. No acute abnormality. . Neck CTA 11/12/18 00:00 CONCLUSION: 1. No aneurysms. 2. Unremarkable study. Chest X-Ray 11/12/18 12:23 CONCLUSION: 1. No acute cardiopulmonary disease. 2. Persistent elevation of the right hemidiaphragm. Head CT 11/12/18 12:23 CONCLUSION: 1. No significant change in the appearance of the brain compared to the previous examination. 2. The patient is status post aneurysm clipping on the left. Encephalomalacia is noted involving the left anterior temporal lobe. 3. Severe periventricular and subcortical white matter small vessel ischemic changes are noted bilaterally. 4. No acute infarct, acute hemorrhage, midline shift or extra-axial fluid collections. . <Polo Morris - 11/13/18 09:45> Physical Exam Vital signs: Vital Signs 11/12/18 16:00 11/12/18 17:28 11/12/18 19:51 Temperature 98.6 F 98.2 F Pulse Rate 93 H 101 H 82 Respiratory Rate 16 16 Blood Pressure 116/75 140/86 Pulse Oximetry 94 L 100 11/12/18 20:00 11/12/18 22:45 11/13/18 00:00 Temperature 98.4 F Pulse Rate 89 69 Respiratory Rate 12 Blood Pressure 134/82 Pulse Oximetry 99 97 99 11/13/18 04:00 11/13/18 07:36 11/13/18 09:00 Temperature 97.8 F 98.2 F Pulse Rate 64 78 63 Respiratory Rate 12 18 Blood Pressure 140/79 123/63 Pulse Oximetry 100 99 11/13/18 11:57 Temperature 98.2 F Pulse Rate 84 Respiratory Rate 20 Blood Pressure 127/65 Pulse Oximetry 98 Intake & Output 11/12/18 11/13/18 11/13/18 18:59 06:59 18:59 Intake Total 1000 / 1000 600 / 600 Balance 1000 / 1000 600 / 600 Weight 61.689 kg Intake: IV 1000 / 1000 600 / 600 NS Inj 1,000 ML @ 100 mls/hr IV 1000 / 1000 600 / 600 .CONT .Q10H [facility] Rx#:[id number] Other: # Voids 1 Date of Last Bowel Movement 11/13/18 Weight On Admission 61.689 kg <Albaro Esposito - 11/13/18 15:36> Vital Signs 11/12/18 12:20 11/12/18 12:30 11/12/18 12:32 Temperature 98.1 F Pulse Rate 108 H 97 H 98 H Respiratory Rate 16 18 Blood Pressure 106/68 107/66 Pulse Oximetry 91 L 94 L 95 11/12/18 14:34 11/12/18 16:00 11/12/18 17:28 Temperature 98.6 F Pulse Rate 83 93 H 101 H Respiratory Rate 16 16 Blood Pressure 108/67 116/75 Pulse Oximetry 99 94 L 11/12/18 19:51 11/12/18 20:00 11/12/18 22:45 Temperature 98.2 F Pulse Rate 82 89 Respiratory Rate 16 Blood Pressure 140/86 Pulse Oximetry 100 99 97 11/13/18 00:00 11/13/18 04:00 11/13/18 07:36 Temperature 98.4 F 97.8 F 98.2 F Pulse Rate 69 64 78 Respiratory Rate 11 05 18 Blood Pressure 134/82 140/79 123/63 Pulse Oximetry 99 100 99 Intake & Output 11/12/18 11/13/18 11/13/18 18:59 06:59 18:59 Intake Total 1000 / 1000 Balance 1000 / 1000 Weight 61.689 kg Intake: IV 1000 / 1000 NS Inj 1,000 ML @ 100 mls/hr IV 1000 / 1000 .CONT .Q10H [facility] Rx#:[id number] Other: # Voids 1 Weight On Admission 61.689 kg <Polo Morris - 11/13/18 09:45> Narrative: GENERAL: Elderly female in no acute distress. SKIN: Warm and dry. No rash. EYES: No scleral icterus. No injection or drainage. PERRLA. EOMI. HENT: Normocephalic. Atraumatic. MMM. OP Benign. No signs of injury. NECK: Supple, trachea midline. No JVD or lymphadenopathy. CARDIOVASCULAR: Regular rate and rhythm without obvious murmurs, gallops, or rubs. RESPIRATORY: Breath sounds equal bilaterally. No accessory muscle use. CTAB. GASTROINTESTINAL: Abdomen soft, non-tender, nondistended. BS WNL. MUSCULOSKELETAL: No cyanosis or edema. Strength grossly WNL. BACK: Nontender without obvious deformity. No CVA tenderness. NEURO/PSYCH: Afocal. Awake and alert. <Polo Morris - 11/13/18 12:02> Assessment and Plan - Assessment (1) Acute encephalopathy Code(s): G93.40 - Encephalopathy, unspecified Status: Acute (2) UTI (urinary tract infection) Code(s): N39.0 - Urinary tract infection, site not specified Status: Acute (3) HTN (hypertension) Code(s): I10 - Essential (primary) hypertension Status: Acute (4) Depression Code(s): F32.9 - Major depressive disorder, single episode, unspecified Status : Acute (5) Nutrition, metabolism, and development symptoms Code(s): R63.8 - Other symptoms and signs concerning food and fluid intake Status: Acute <Albaro Esposito - 11/13/18 15:36> (1) Acute encephalopathy Code(s): G93.40 - Encephalopathy, unspecified Status: Acute Plan: This patient is admitted after an unwitnessed fall, found by daughter after unknown amount of time. Patient left home 2 days ago found in hotel. History of brain anuerysm. UA shows leukocyte esterase. - Serial troponin wnl x3 - EKG shows NSR, normal EKG, no ST changes - Monitor on telemetry - Orthostatic BPs wnl - Urine culture pending - B12 wnl - methylmalonic acid level pending - drug screen negative - folate level high - INR wnl - Resume home medications of topiramate and sertraline - PT consult (2) UTI (urinary tract infection) Code(s): N39.0 - Urinary tract infection, site not specified Status: Acute Plan: Patient with moderate leukocyte esterase on UA on admission after unwitnessed fall. Macrobid 100 BID for 7 day course. (3) HTN (hypertension) Code(s): I10 - Essential (primary) hypertension Status: Acute Plan: Patient reports having history of hypertension but is currently normotensive -Continue to monitor vitals -Continue home amlodipine 5 mg daily (4) Depression Code(s): F32.9 - Major depressive disorder, single episode, unspecified Status : Acute Plan: -Continue home medication of sertraline (5) Nutrition, metabolism, and development symptoms Code(s): R63.8 - Other symptoms and signs concerning food and fluid intake Status: Acute Plan: Fluids: Not indicated at this time Electrolytes: Replete as needed Nutrition: Cardiac diet DVT prophylaxis: Enoxaparin 40 mg subcu daily <Polo Morris - 11/13/18 11:51> - Assessment and Plan Patient is a 68-year-old female with a history of cerebral aneurysm, seizure disorder, depression, hypertension who p/w Syncope vs. Seizure: - CTA of head/neck showed 1. Prior aneurysm clipping. 2. Variant anatomy. 3. No acute abnormality or new aneurysms - ACS ruled out with negative troponins/ekg - B12/Folate/MMA normal/high/pending, respectively - UA with urine culture ordered: will empirically treat for possible UTI with Macrobid, 7-day course - Orthostatic vitals wnl - Physical therapy ordered for eval <Polo Morris - 11/13/18 12:02> - Attending Attestation Patient case discussed with resident physicians I have independently examined the patient I have read the above note and agree with the assessment and plan as discussed with me I was involved in all medical decision making for this patient Albaro Esposito MD <Albaro Esposito - 11/13/18 15:36>
[2018-11-13 10:17] LABS: INR 1.1 Ratio; Prothrombin Time 10.7 sec (9.8-11.6)
[2018-11-13 10:24] LABS: Albumin 3.4 g/dL (3.4-5.0); Anion Gap 4 meq/L (5-15); Aspartate Aminotransferase 21 U/L (15-37); Blood Urea Nitrogen 19 mg/dL (7-18); Calcium 8.7 mg/dL (8.5-10.1); Carbon Dioxide 27.9 meq/L (21.0-32.0); Chloride 112 meq/L (98-107); Glomerular Filtration Rate 61 mL/min (>89); Glucose,Random 113 mg/dL (74-106); Potassium 4.5 meq/L (3.5-5.1); Sodium 144 meq/L (136-145)
[2018-11-13 10:29] LABS: Alanine Aminotransferase 17 U/L (10-53); Alkaline Phosphatase 72 U/L (45-117); Total Protein 8.1 g/dL (6.4-8.2)
[2018-11-13 11:58] VITALS: BP 127/65; PULSE 84; RESP 20; O2SAT 98
--- NOTE | 2018-11-13 12:07 | P.DCO ---
- Physical Therapy Order: Evaluate and treat, Improve ambulation, Strength and gait training - Home Health Nursing Order: Medical education, Signs/symptoms of disease process - Case Management Consult Case Management Consult-Home Health: Yes - Certification I have seen patient Jayashree Amaya on 11/13/18. My clinical findings support the need for the requested home health care services because: High risk of falls I certify that my clinical findings support that this patient is homebound because: Unsteady gait/balance
--- NOTE | 2018-11-13 17:23 | ECG ---
Date Performed: 11/12/2018 Time Performed: 12:50:33 PTAGE: 68 years EKG: Sinus rhythm NORMAL ECG Since PREVIOUS TRACING , MD interval slightly shorter, otherwise no signficant change. PREVIOUS TRACIN07/16/2015 03.35 DOCTOR: Ye Roberson Interpretating Date/Time 11/13/2018 17:22:41
[2018-11-13] MEDS ORDERED: Topiramate 25 MG Tablet PO SCH (21:00)
== END 2018-11-13 15:10 | disposition home health service (06) ==
LOC: NEDA 12:11 → NEPC 12:11 → NEDA 15:35 → NEPFCDU 15:37
PROVIDERS: ADMIT Family Medicine; ATTEND Family Medicine